=== PATIENT | male | born 1975 | race Caucasian/White ===

== ENCOUNTER 2021-12-17 15:01 | Emergency (ER) | payer BC, OTHER ==
[2021-12-17] MEDS ORDERED: EPINEPHrine 1:1,000 0.3 MG/0.3 ML SYR IM ONE (15:07)
[2021-12-17] MEDS ORDERED: FAMOTIDINE 20 MG/50 ML IVPB 20 MG/50 ML MG IVPB ONE (15:09)
[2021-12-17] MEDS ORDERED: methylPREDNISolone NA SUCC 125 MG/2 ML VIAL IVPUSH ONE (15:11)
[2021-12-17] MEDS ORDERED: LACTATED RINGERS SOLUTION 1000 ML INFUS.BAG IV ONE (15:18)
[2021-12-17 15:29] VITALS: BMI 37.5
[2021-12-17] MEDS ORDERED: ALBUTEROL SO4 0.083% IH SOL 2.5 MG/3 ML VIAL.NEB. NEB ONE ×4 (15:56→17:24)
[2021-12-17 16:58] VITALS: BP 130/87
[2021-12-17 19:07] VITALS: PULSE 118
[2021-12-17 19:09] VITALS: TEMP 98.2
== END 2021-12-17 19:05 | disposition home or self-care (01) ==
LOC: JER 15:01
PROC: 3E023GC Introduction of Other Therapeutic Substance into Muscle, Percutaneous Approach (ICD-10-PCS; principal; 2021-12-17)
PROC: 3E033GC Introduction of Other Therapeutic Substance into Peripheral Vein, Percutaneous Approach (ICD-10-PCS; principal; 2021-12-17)
PROC: 3E0F7GC Introduction of Other Therapeutic Substance into Respiratory Tract, Via Natural or Artificial Opening (ICD-10-PCS; 2021-12-17)
DX: T78.40XA Allergy, unspecified, initial encounter (principal)
CPT/HCPCS: 71046-TC-FY; 93005; 93010; 99284-25